=== PATIENT | male | born 1980 | race African-American/Black ===

== ENCOUNTER 2024-02-15 14:49 | Emergency (ER) | payer BC ==
[~2024-02-15] VITALS: Ht 185.4 cm; Wt 99.8 kg
[~2024-02-15 14:49] MED LIST: BIAXIN500 MG PO; ZANTAC150 MG PO; ZOFRAN4 MG PO
[2024-02-15] MEDS ORDERED: ACETAMINOPHEN 325 MG TAB PO ONE (15:55)
[2024-02-15] MEDS ORDERED: LEVOFLOXACIN 750 MG TAB PO ONE (15:55)
[2024-02-15] MEDS ORDERED: LEVOFLOXACIN750 M2 PO (15:55)
== END 2024-02-15 16:09 | disposition home or self-care (01) ==
LOC: ED 14:49
DX: J18.9 Pneumonia, unspecified organism (principal); Z20.822 Contact with and (suspected) exposure to COVID-19; R53.1 Weakness